=== PATIENT | female | born 1950 | race Caucasian/White ===

== ENCOUNTER 2019-01-07 06:56 | Day surgery (SDC) | payer MEDICARE, OTHER ==
[~2019-01-07] VITALS: Ht 165.1 cm; Wt 88.6 kg
[2019-01-07] MEDS ORDERED: ROSU10TA PO (07:47)
[2019-01-07] MEDS ORDERED: GABA300 PO (07:47)
[2019-01-07] MEDS ORDERED: CYAN500 PO (07:47)
[2019-01-07] MEDS ORDERED: CHOL10002 PO (07:48)
== END 2019-01-07 08:48 | disposition home or self-care (01) ==
LOC: ORSCSDS 06:56
PROVIDERS: Ophthalmology
PROC: 08RJ3JZ Replacement of Right Lens with Synthetic Substitute, Percutaneous Approach (ICD-10-PCS; principal; 2019-01-07 08:00)
DX: H25.11 Age-related nuclear cataract, right eye (principal); E11.9 Type 2 diabetes mellitus without complications; F41.9 Anxiety disorder, unspecified; Z79.899 Other long term (current) drug therapy
CPT/HCPCS: J2250; J3010; J7120; V2788